=== PATIENT | male | born 1965 | race Caucasian/White ===

== ENCOUNTER 2018-08-04 05:35 | Outpatient (CLI) | payer BC ==
[~2018-08-04] VITALS: Ht 175.3 cm; Wt 90.7 kg
== END 2018-08-04 12:45 | disposition home or self-care (01) ==
LOC: PREOP 05:35
PROVIDERS: ATTEND Internal Medicine
DX: Z01.818 Encounter for other preprocedural examination (principal)

== ENCOUNTER 2018-08-08 07:09 | Day surgery (SDC) | payer BC ==
--- NOTE | 2018-07-25 05:16 | HISTORY AND PHYSICAL ---
DATE OF SERVICE: COLONOSCOPY HISTORY AND PHYSICAL REQUESTING PHYSICIAN: . INDICATION FOR THE PROCEDURE: Screening colonoscopy. HISTORY OF PRESENT ILLNESS: The patient is a 53-year-old white male referred for screening colonoscopy. He was seen in the office on 07/17/2018. He reports one grandparent who had colon cancer and at the age of 86. He is not aware of any other family history of colon polyps or GI tract malignancy. He has no past personal GI tract history and denies melena. He will have occasional bright red blood per rectum, although it has been several years, but he has attributed to hemorrhoids. It is not associated with constipation, straining or pain. He reports that his weight has been stable. Appetite has been normal and he denies abdominal pain or bowel habit change. PAST MEDICAL HISTORY: Relatively noncontributory. He takes no medication prescription or [id number] and reports no known drug allergies. PAST SURGICAL HISTORY: He had umbilical hernia repair [place] [address] Crain and wisdom tooth extraction as a young adult. FAMILY HISTORY: Father is living at the age of 75. Does have a history of coronary artery disease and osteoarthritis. Mother at the age of 59 secondary to ovarian cancer and one grandparent as noted above with colon cancer. He has a 46-year-old sister and 51-year-old brother with no known health problems. 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 He has occasional moderate alcohol consumption and no past history of smoking. REVIEW OF SYSTEMS: CONSTITUTIONAL: He has had no night sweats, chills, fever or weight change. PULMONARY: He denies cough, hemoptysis, wheezing or shortness of breath. CARDIOVASCULAR: He denies palpitations, presyncope or syncope, dyspnea on exertion, orthopnea, PND or pedal edema. GASTROINTESTINAL: As per HPI. PHYSICAL EXAMINATION: GENERAL: Reveals a well-appearing white male. VITAL SIGNS: Weight 204 pounds. Blood pressure 130/84, respiratory rate 16 and nonlabored. Heart rate 72 and regular. HEENT: Unremarkable. Sclerae nonicteric. NECK: Revealed no JVD, adenopathy or bruits. CHEST: Clear to auscultation. CARDIOVASCULAR: Reveals a regular rate and rhythm without murmur, S3 or S4. ABDOMEN: Soft, supple without mass, organomegaly or tenderness. There is slightly erythematous, nontender scar in the umbilicus, small in size. Bowel sounds are positive. No bruits are noted. EXTREMITIES: Reveal no cyanosis, clubbing or edema. ASSESSMENT: The patient is set up for screening colonoscopy on 08/08/18. Prep instructions were given and questions were answered. I thank you for the referral of this pleasant gentleman. Job ID: [id number] DocumentID: [id number] Dictated Date: 07/21/2018 08:44:21 Plastic Design Applier Date: 07/21/2018 09:19:01 Dictated By: YELITZA CELESTIN MD
[~2018-08-08] VITALS: Ht 175.3 cm; Wt 90.7 kg
[2018-08-08] MEDS ORDERED: D5 LR IV SOLUTION 1,000 ML IV ONE (07:16)
[2018-08-08] MEDS ORDERED: D5 LR IV SOLUTION 1,000 ML IV STA (07:19)
[2018-08-08] MEDS ORDERED: MIDAZOLAM 2 MG/2 ML (VERSED) VIAL IVP ONE (07:30)
[2018-08-08] MEDS ORDERED: LIDOCAINE JELLY 2% 6 ML SYRINGE MM PRN (07:30)
[2018-08-08] MEDS ORDERED: fentaNYL INJECTION 100 MCG/2 ML AMP IVP ONE (07:30)
[2018-08-08 07:31] VITALS: BP 118/88
[2018-08-08 08:35] VITALS: BP 110/72
[2018-08-08 09:05] VITALS: BP 119/62
--- NOTE | 2018-08-08 09:10 | Pre-Op Note & Conscious Sedat ---
Pre-Operative Progress Note H&P Reviewed The H&P was reviewed, patient examined and no changes noted. Date H&P Reviewed: August 08, 2018 Time H&P Reviewed: 07:40 Conscious Sedation Pre-Proced ASA Score 1 For ASA 3 and 4: Consider anesthesia and medical clearance. Also, for patients with a history of failed moderate sedation consider anesthesia. Airway Lungs Heart ASA score ASA 1: a normal healthy patient ASA 2: a patient with a mild systemic disease (mid diabetes, controlled hypertension, obesity ASA 3: a patient with a severe systemic disease that limits activity (angina , COPD, prior Myocardial infarction) ASA 4: a patient with an incapacitating disease that is a constant threat to life (CHF, renal failure) ASA 5: a moribund patient not expected to survive 24 hrs. (ruptured aneurysm) ASA 6: a declared brain- patient whose organs are being harvested. For emergent operations, add the letter E after the classification Mallampati Classification Grade 2 Sedation Plan Analgesia, Amnesia, Plan communicated to team members, Discussed options with patient/fam, Discussed risks with patient/fam The patient is an appropriate candidate to undergo the planned procedure, sedation, and anesthesia. The patient immediately re-assessed prior to indication. YELITZA CELESTIN MD August 08, 2018 09:10
[2018-08-08 09:30] VITALS: BP 119/62
--- NOTE | 2018-08-08 18:46 | OPERATIVE REPORT ---
DATE OF SERVICE: 08/08/2018 COLONOSCOPY SUMMARY INDICATION FOR THE PROCEDURE: Screening colonoscopy. DESCRIPTION OF PROCEDURE: The patient was placed in left lateral decubitus position. Prior to undergoing colonoscopy, digital rectal evaluation was performed. Anal sphincter tone was normal and the perianal reflexes intact. Prostate was anodular and nontender, normal in size on digital inspection. No abnormalities were noted to digital inspection of the anal canal or distal rectal vault. The colonoscope was then inserted into the rectum and under direct visualization advanced to the cecum. The cecum was identified by identification of the ileocecal valve and cecal strap. Photographic documentation was obtained. Careful inspection was made as the colonoscope was withdrawn. Quality of prep was good. FINDINGS: No evidence for internal or external hemorrhoids and the rectum was unremarkable. Present in the mid sigmoid colon was a diminutive polyp. It was in a difficult location to grasp. I was able to only grasp the adjacent tissue with cauterization being performed under the entire base of the polyp. Because I could not grasp the head of the polyp and only adjacent normal appearing mucosa, a biopsy was not submitted for histopathology. The polyp had a hyperplastic appearance. The remainder of the sigmoid colon was unremarkable. The descending colon, splenic flexure, transverse colon, hepatic flexure, ascending colon and cecum were unremarkable. No evidence for diverticular disease was noted. ASSESSMENT AND PLAN: One diminutive polyp was removed from the mid sigmoid colon via hot forceps as noted above. As long as there continues to be no known family history for colon cancer, we would just advocate consideration for repeat screening colonoscopy in 10 years. This was otherwise normal colonoscopy to the cecum. I thank you for the referral of this pleasant gentleman. Job ID: [id number] DocumentID: [id number] Dictated Date: 08/08/2018 10:41:10 Coil Maker Date: 08/08/2018 18:45:25 Dictated By: YELITZA CELESTIN MD
== END 2018-08-08 09:30 | disposition home or self-care (01) ==
LOC: ENDO 07:09
PROVIDERS: ATTEND Internal Medicine
DX: Z12.11 Encounter for screening for malignant neoplasm of colon (principal); K63.5 Polyp of colon

== ENCOUNTER 2021-12-13 20:54 | Emergency (ER) | payer BC ==
--- NOTE | 2021-12-13 21:10 | ED Lower Extremity ---
General Chief Complaint: Lower Extremity Stated Complaint: FOOT INJURY Source: patient Exam Limitations: no limitations History of Present Illness Date Seen by Provider: Dec 13, 2021 Time Seen by Provider: 21:06 Initial Comments 56-year-old male presents for right foot injury. He stepped on a crack in twisted. He has pain at the base of his fifth toe on the right foot. No other injuries. Did not hit his head or lose consciousness. No ankle or knee pain. Allergies and Home Medications Allergies Coded Allergies: No Known Drug Allergies (Unverified , 08/04/18) Patient Home Medication List Home Medication List Reviewed: Yes No Active Prescriptions or Reported Meds Review of Systems Constitutional: no symptoms reported EENTM: no symptoms reported Respiratory: no symptoms reported Cardiovascular: no symptoms reported Gastrointestinal: no symptoms reported Genitourinary: no symptoms reported Musculoskeletal: other (Right foot pain) Skin: no symptoms reported Psychiatric/Neurological: No Symptoms Reported Past Sdypdwj-Wpmzkh-Wnwqzd Hx Patient Social History Tobacco Use?: No Use of E-Cig and/or Vaping dev: No Substance use?: No Alcohol Use?: Yes Alcohol type: Beer Alcohol Frequency: Rarely Immunizations Up To Date Tetanus Booster (TDap): Unknown Seasonal Allergies Seasonal Allergies: Yes Past Medical History Surgeries: Yes (UMBILICAL HERNIA) Respiratory: No Currently Using CPAP: No Currently Using BIPAP: No Cardiac: No Neurological: No Sexually Transmitted Disease: No HIV/AIDS: No Genitourinary: No Gastrointestinal: No Musculoskeletal: No Endocrine: No HEENT: Yes (READING GLASSES) Loss of Vision: Bilateral Hearing Impairment: Denies Cancer: No Psychosocial: No Integumentary: No Blood Disorders: Yes Adverse Reaction/Blood Tranf: No (N/A) Family Medical History Reviewed Nursing Family Hx No Pertinent Family Hx Physical Exam Vital Signs Vital Signs - First Documented 12/13/21 20:59 Temp 36.8 Pulse 61 Resp 16 B/P (MAP) 147/89 (108) Pulse Ox 100 O2 Delivery Room Air Capillary Refill : Height, Weight, BMI Height: 5'9.00" Weight: 200lbs. 0.0oz. [id number]; 29.5 BMI Method: General Appearance: WD/WN, no apparent distress HEENT: normal ENT inspection, TMs normal, pharynx normal Neck: non-tender, full range of motion, supple, normal inspection Cardiovascular: regular rate, rhythm, no edema, no gallop, no JVD, no murmur Respiratory: chest non-tender, lungs clear, normal breath sounds, no respiratory distress, no accessory muscle use Gastrointestinal: normal bowel sounds, non tender, soft, no organomegaly, no pulsatile mass Hips: bilateral hip non-tender, bilateral hip normal inspection, bilateral hip normal range of motion Legs: bilateral leg non-tender, bilateral leg normal inspection, bilateral leg normal range of motion Knees: bilateral knee non-tender, bilateral knee normal inspection, bilateral knee normal range of motion Ankles: bilateral ankle non-tender, bilateral ankle normal inspection, bilateral ankle normal range of motion Feet: right foot swelling (Swelling, pain at the base of the fifth metatarsal right foot. Neurovascular motor and sensory intact.) Neurologic/Tendon: normal sensation, normal motor functions, normal tendon functions Neurologic/Psychiatric: alert, normal mood/affect, oriented x 3 Skin: normal color, warm/dry Progress/Results/Core Measures Results/Orders My Orders Orders - SINA BROOKS DO Foot, Right, 3 View (12/13/21 21:08) Vital Signs/I&O 12/13/21 12/13/21 20:59 21:52 Temp 36.8 36.8 Pulse 61 60 Resp 16 16 B/P (MAP) 147/89 (108) 132/85 Pulse Ox 100 100 O2 Delivery Room Air Room Air Departure Communication (Admissions) Patient has a fracture of the midshaft of the fifth metatarsal left foot. Placed in a hard soled shoe, given crutches and advised nonweightbearing status until cleared by orthopedics. Discharged in stable condition after questions were sought and answered. Impression Primary Impression: Fracture of fifth metatarsal bone of left foot Qualified Codes: S92.352A - Displaced fracture of fifth metatarsal bone, left foot, initial encounter for closed fracture Disposition: 01 HOME, SELF-CARE Condition: Stable Departure-Patient Inst. Referrals: JAKOB CHICAS MD (PCP) Primary Care Physician FERNANDO RAMIREZ MD Patient Instructions: Foot Fracture ED Add. Discharge Instructions: Use the hard soled shoe provided. Use crutches. Follow-up with orthopedic surgeon by calling to schedule an appointment. Do not bear weight until cleared to do so. Use Motrin and Tylenol as needed for pain. Elevate the extremity and ice it when not in use. All discharge instructions reviewed with patient and/or family. Voiced understanding. Scripts No Active Prescriptions or Reported Meds Copy Copies To 1: FERNANDO RAMIREZ MD, KENNETH L DO Dec 13, 2021 21:10
[2021-12-13 21:52] VITALS: BP 132/85
--- NOTE | 2021-12-13 21:53 | Diagnostic Imaging Report ---
INDICATION: Right foot pain post injury AP, oblique, lateral views of the right foot are obtained at 9:31 p.m. There is an acute oblique fracture of the midshaft of the 5th metatarsal with mild displacement. Remaining structures are intact. There is no intra-articular extension IMPRESSION: Acute oblique fracture of 5th metatarsal as above. Dictated by: Dictated on workstation # [id number]
== END 2021-12-13 21:53 | disposition home or self-care (01) ==
LOC: EDUNIT# 20:54 → ER 20:55
DX: S92.352A Displaced fracture of fifth metatarsal bone, left foot, initial encounter for closed fracture (principal); Z28.310 Unvaccinated for COVID-19; X50.1XXA Overexertion from prolonged static or awkward postures, initial encounter
CPT/HCPCS: 73630